=== PATIENT | male | born 1970 | race Two or more races ===

== ENCOUNTER 2023-05-30 07:07 | Emergency (ER) | payer OTHER ==
[~2023-05-30] VITALS: Ht 165.1 cm; Wt 99.8 kg
[~2023-05-30 07:07] MED LIST: TESSALON PERLE100 MG
== END 2023-05-30 09:43 | disposition home or self-care (01) ==
LOC: ER 07:07
DX: J40 Bronchitis, not specified as acute or chronic (principal); R05.9 Cough, unspecified; Z88.6 Allergy status to analgesic agent